=== PATIENT | male | born 1965 | race Caucasian/White ===

== ENCOUNTER 2017-08-12 06:21 | Day surgery (SDC) | payer OTHER ==
[~2017-08-12] VITALS: Ht 182.9 cm; Wt 68.0 kg
[2017-08-12] MEDS ORDERED: LACTATED RINGERS 1,000 ML IV SCH (06:46)
[2017-08-12 06:51] VITALS: BP 109/63
[2017-08-12] MEDS ORDERED: PLEASE ENTER HEIGHT AND WEIGHT MC SCH (07:00)
[2017-08-12] MEDS ORDERED: HYDR-882 PO (07:14)
[2017-08-12] MEDS ORDERED: LISI-167 PO (07:14)
[2017-08-12] MEDS ORDERED: FENTANYL PF 100 MCG/2ML ONE ×2 (08:19→09:18)
[2017-08-12] MEDS ORDERED: TRIAMCINOLONE ACETONIDE 40 MG/ML, 1ML ONE (08:20)
[2017-08-12] MEDS ORDERED: BUPIVACAINE/PF 0.5% ONE ×2 (08:20→13:10)
[2017-08-12] MEDS ORDERED: ETHYL ALCOHOL 98%, 5 ML ONE (08:20)
[2017-08-12] MEDS ORDERED: DEXAMETHASONE 4 MG/ML, 1ML ONE (08:22)
[2017-08-12] MEDS ORDERED: PROPOFOL 10 MG/ML, 20ML ONE (08:22)
[2017-08-12] MEDS ORDERED: ONDANSETRON 2MG/ML, 2ML ONE (08:22)
[2017-08-12] MEDS ORDERED: SUCCINYLCHOLINE 20 MG/ML, 10ML ONE (08:22)
[2017-08-12] MEDS ORDERED: LABETALOL 5MG/ML, 20ML IV PRN (09:00)
[2017-08-12] MEDS ORDERED: PROMETHAZINE 25 MG/ML, 1ML IV PRN (09:00)
[2017-08-12] MEDS ORDERED: ALBUTEROL SULFATE 2.5 MG/3 ML NPPB PRN (09:00)
[2017-08-12] MEDS ORDERED: ACETAMINOPHEN 325 MG TABLET PO PRN (09:00)
[2017-08-12] MEDS ORDERED: LORazepam 2 MG/ML, 1ML IVPush PRN (09:00)
[2017-08-12] MEDS ORDERED: OXYcodone 5 MG/5 ML ORAL.SOL UDC PO PRN (09:00)
[2017-08-12] MEDS ORDERED: MEPERIDINE/PF 25MG/0.5ML IVPush PRN (09:00)
[2017-08-12] MEDS ORDERED: FENTANYL PF 100 MCG/2ML IV PRN (09:00)
[2017-08-12] MEDS ORDERED: hydrALAzine 20 MG/ML, 1ML IV PRN (09:00)
[2017-08-12] MEDS ORDERED: HYDROmorphone 1 MG/ML, 1ML IV PRN (09:00)
[2017-08-12] MEDS ORDERED: PIPERACILLIN/TAZO/PMX 3.375GM 50 ML IV ONE (09:30)
[2017-08-12] MEDS ORDERED: INDOMETHACIN 50 MG SUPP.RECT ONE (10:23)
[2017-08-12] MEDS ORDERED: INDOMETHACIN 50 MG SUPP.RECT PR ONE (10:30)
[2017-08-12] MEDS ORDERED: OXYcodone 5 MG/5 ML ORAL.SOL UDC ONE (10:43)
[2017-08-12] MEDS ORDERED: ACETAMINOPHEN 650 MG/20.3 ML UDC ONE (10:43)
== END 2017-08-12 12:10 | disposition home or self-care (01) ==
LOC: OUT 06:21
PROVIDERS: ATTEND Internal Medicine Gastroenterology
DX: K86.0 Alcohol-induced chronic pancreatitis (principal); K83.1 Obstruction of bile duct; K80.50 Calculus of bile duct without cholangitis or cholecystitis without obstruction
CPT/HCPCS: 36415; 43239; 43242; 43262; 43264; 43274; 43277; 74330; 82150; 82378; 86301; 88104; 88112; 88305; C1769; C1894; C2625; J0330; J1100; J2405; J2704; J3010; J3301; J3490; J7120

== ENCOUNTER → 2017-10-03 | Outpatient (CLI) | payer OTHER ==
[~2017-10-03] MED LIST: HYDR-882 PO; LISI-167 PO
== END | disposition home or self-care (01) ==
LOC: RAD 06:30
PROVIDERS: ATTEND Family Medicine
DX: M51.36 Other intervertebral disc degeneration, lumbar region (principal); M41.9 Scoliosis, unspecified
CPT/HCPCS: 72072; 72110

== ENCOUNTER 2017-11-25 10:46 | Day surgery (SDC) | payer OTHER ==
[~2017-11-25] VITALS: Ht 182.9 cm; Wt 68.3 kg
[2017-11-25] MEDS ORDERED: LACTATED RINGERS 1,000 ML IV SCH (11:18)
[2017-11-25] MEDS ORDERED: trazadone PO (11:20)
[2017-11-25 11:22] VITALS: BP 118/76
[2017-11-25] MEDS ORDERED: HYDROmorphone 1 MG/ML, 1ML IV PRN (13:00)
[2017-11-25] MEDS ORDERED: OXYcodone 5 MG/5 ML ORAL.SOL UDC PO PRN (13:00)
[2017-11-25] MEDS ORDERED: FENTANYL PF 100 MCG/2ML IV PRN (13:00)
[2017-11-25] MEDS ORDERED: MIDAZOLAM 1 MG/ML, 2ML IV PRN (13:00)
[2017-11-25] MEDS ORDERED: ONDANSETRON 2MG/ML, 2ML IVPush PRN (13:00)
[2017-11-25] MEDS ORDERED: LABETALOL 5MG/ML, 20ML IV PRN (13:00)
[2017-11-25] MEDS ORDERED: MEPERIDINE/PF 25MG/0.5ML IVPush PRN (13:00)
[2017-11-25] MEDS ORDERED: MIDAZOLAM 1 MG/ML, 2ML ONE (13:06)
[2017-11-25] MEDS ORDERED: FENTANYL PF 100 MCG/2ML ONE (13:06)
[2017-11-25] MEDS ORDERED: OXYcodone 5 MG/5 ML ORAL.SOL UDC ONE (14:25)
[2017-11-25] MEDS ORDERED: ONDANSETRON 2MG/ML, 2ML ONE (15:28)
[2017-11-25] MEDS ORDERED: SUCCINYLCHOLINE 20 MG/ML, 10ML ONE (15:28)
[2017-11-25] MEDS ORDERED: DEXAMETHASONE 4 MG/ML, 1ML ONE (15:28)
[2017-11-25] MEDS ORDERED: CEFAZOLIN 1,000 MG ONE (15:28)
[2017-11-25] MEDS ORDERED: METOCLOPRAMIDE 5 MG/ML, 2ML ONE (15:28)
[2017-11-25] MEDS ORDERED: PROPOFOL 10 MG/ML, 20ML ONE (15:28)
== END 2017-11-25 15:30 | disposition home or self-care (01) ==
LOC: OUT 10:46
PROVIDERS: ATTEND Internal Medicine Gastroenterology
DX: K83.1 Obstruction of bile duct (principal); K86.1 Other chronic pancreatitis; K86.89 Other specified diseases of pancreas; I10 Essential (primary) hypertension; Z98.890 Other specified postprocedural states; F17.210 Nicotine dependence, cigarettes, uncomplicated; F19.90 Other psychoactive substance use, unspecified, uncomplicated; F10.10 Alcohol abuse, uncomplicated
CPT/HCPCS: 43262; 43264; 43275; 74330; C1769; J0330; J0690; J1100; J2250; J2405; J2704; J2765; J3010; J7120